=== PATIENT | male | born 1960 | race Caucasian/White ===

== ENCOUNTER 2023-03-14 18:39 | Emergency (ER) | payer OTHER ==
[~2023-03-14] VITALS: Ht 170.2 cm; Wt 89.8 kg
[2023-03-14] MEDS ORDERED: MIDAZOLAM HCL 2 MG/2ML VIAL ONE (19:54)
[2023-03-14] MEDS ORDERED: MIDAZOLAM HCL 2 MG/2ML VIAL IM ONE (20:00)
[2023-03-14] MEDS ORDERED: LORAZEPAM INJ 2 MG/ML VIAL ONE ×2 (20:53→22:15)
[2023-03-14] MEDS ORDERED: LORAZEPAM INJ 2 MG/ML VIAL IM ONE ×2 (21:00→22:30)
[2023-03-14 21:26] LABS: BASOPHILS % (AUTO) 0.5 % (0.0-2.0); EOSINOPHILS % (AUTO) 3.6 % (0.0-6.0); HEMATOCRIT 48 % (39-51); HEMOGLOBIN 15.9 g/dL (13.5-17.5); LYMPHOCYTES # (AUTO) 2.6 K/uL (0.8-4.8); LYMPHOCYTES % (AUTO) 41.2 % (20.0-44.0); MEAN CORPUSCULAR HGB CONC 33 g/dl (31.0-36.0); MEAN CORPUSCULAR VOLUME 102 fL (80-96); MONOCYTES # (AUTO) 0.5 K/uL (0.1-1.30); MONOCYTES % (AUTO) 7.6 % (2.0-12.0); NEUTROPHILS # (AUTO) 2.9 K/uL (1.8-8.9); NEUTROPHILS % (AUTO) 47.1 % (43.0-81.0); PLATELET COUNT (AUTO) 285 K/uL (150-450); RED BLOOD CELL COUNT(AUTO) 4.73 MIL/uL (4.5-6.0); WHITE BLOOD COUNT (AUTO) 6.3 K/uL (4.3-11.0)
[2023-03-14 21:50] LABS: CALCIUM, SERUM 9.1 mg/dL (8.5-10.1); CARBON DIOXIDE 23 mmol/L (21-32); CHLORIDE 109 mmol/L (98-107); CREATININE 0.8 mg/dL (0.6-1.3); GLUCOSE 101 mg/dL (74-106); POTASSIUM 3.9 mmol/L (3.5-5.1); SODIUM SERUM 143 mmol/L (136-145); UREA NITROGEN, BLOOD 12 mg/dL (7-18)
--- NOTE | 2023-03-14 21:52 | NUR ---
COVID SWAB COLLECTED AND SENT TO LAB
[2023-03-14 21:57] LABS: ALANINE AMINOTRANSFERASE 36 U/L (12-78); ALBUMIN 3.9 g/dL (3.4-5.0); ALCOHOL, BLOOD 217 mg/dL (0-10); ALKALINE PHOSPHATASE 108 U/L (46-116); ASPARTATE AMINOTRANSFERASE 29 U/L (15-37); BILIRUBIN,DIRECT 0.1 mg/dL (0.0-0.2); BILIRUBIN,TOTAL 0.3 mg/dL (0.2-1.0); TOTAL PROTEIN, SERUM 7.6 g/dL (6.4-8.2)
[2023-03-14] MEDS ORDERED: diphenhydrAMINE HCL 50 MG/ML VIAL ONE (22:14)
[2023-03-14] MEDS ORDERED: diphenhydrAMINE HCL 50 MG/ML VIAL IM ONE (22:30)
--- NOTE | 2023-03-15 00:05 | NUR ---
REPORT GIVEN TO FRANDY FROM [facility]
--- NOTE | 2023-03-15 00:36 | NUR ---
APA AT BEDSIDE TO TRANSFER PT BACK TO RESIDENCE.
[2023-03-15 00:39] VITALS: BP 128/81
== END 2023-03-15 00:40 | disposition home or self-care (01) ==
LOC: ER 19:14
DX: F10.129 Alcohol abuse with intoxication, unspecified (principal); R45.1 Restlessness and agitation; F19.90 Other psychoactive substance use, unspecified, uncomplicated; J45.909 Unspecified asthma, uncomplicated; Z20.822 Contact with and (suspected) exposure to COVID-19; Y90.7 Blood alcohol level of 200-239 mg/100 ml
CPT/HCPCS: 99284; 96372 ×4; 85025; 80048; 80076; 36415; 87426; 80143; 80320; J2060 ×2; J1200; J2250; C9803; G0480